=== PATIENT | male | born 1960 | race African-American/Black ===

== ENCOUNTER 2022-07-26 18:27 | Emergency (ER) | payer MEDICAID ==
[~2022-07-26] VITALS: Ht 177.8 cm; Wt 105.0 kg
[2022-07-26] MEDS: LIDOCAINE HCL/EPINEPHRINE 1%-EPI 1:100,000 10 ML VIAL IJ NR (21:15)
[2022-07-26] MEDS ORDERED: TETANUS, DIPHTHERIA, PERTUSSIS VAC/PF 0.5ML (>10YR OLD) IM ONE (21:15)
[2022-07-26] MEDS ORDERED: LIDOCAINE HCL/EPINEPHRINE 1%-EPI 1:100,000 50 ML VIAL INFIL ONE (21:15)
[2022-07-26 23:15] VITALS: BP 124/86
[2022-07-26] MEDS ORDERED: IBUPROFEN 400MG TABLET PO ONE (23:15)
[2022-07-26] MEDS ORDERED: ACETAMINOPHEN 325MG TABLET PO ONE (23:15)
[2022-07-27] MEDS: LIDOCAINE HCL/EPINEPHRINE 1%-EPI 1:100,000 10 ML VIAL IJ NR (00:06)
[2022-07-27] MEDS ORDERED: IBUP-2028 MT (00:10)
[2022-07-27] MEDS ORDERED: AMOX1TAB16 MT (00:10)
[2022-07-27] MEDS ORDERED: BO1 TP (00:13)
== END 2022-07-27 00:35 | disposition home or self-care (01) ==
LOC: ER 18:27
DX: S61.511A Laceration without foreign body of right wrist, initial encounter (principal); W54.0XXA Bitten by dog, initial encounter; Y93.89 Activity, other specified; Y92.89 Other specified places as the place of occurrence of the external cause; Y99.8 Other external cause status
CPT/HCPCS: 12004; 73100; 90471; 90715; 99283; J3490; Z7610

== ENCOUNTER 2022-07-28 13:34 | Emergency (ER) | payer BC, MEDICAID ==
[~2022-07-28] VITALS: Ht 182.9 cm; Wt 109.0 kg
[~2022-07-28 13:34] MED LIST: AMOX1TAB16 MT; BO1 TP; IBUP-2028 MT
[2022-07-28] MEDS ORDERED: ACETAMINOPHEN 325MG TABLET PO STA (17:12)
[2022-07-28] MEDS ORDERED: AMPICILLIN SOD/SULBACTAM NA 3 G in SODIUM CHLORIDE 0.9% 100 ML IV STA (17:12)
[2022-07-28] MEDS ORDERED: SODIUM CHLORIDE 0.9% 1000ML BAG (SEPSIS BOLUS) IV ONE (17:15)
[2022-07-28] MEDS ORDERED: VANCOMYCIN 1G PREMIX 200 ML IV ONE (17:15)
[2022-07-28 18:37] LABS: CHLORIDE 103 mEq/L (98-107)
[2022-07-28 18:38] LABS: BASOPHILS % 0.4 % (0.0-2.0); EOSINOPHILS % 0.3 % (0.0-5.0); HEMATOCRIT. 42.1 % (42.0-52.0); HEMOGLOBIN. 14.2 g/dL (14.0-18.0); MEAN CORPUSCULAR HEMOGLOBIN 27.6 pg (28.0-32.0); MEAN PLATELET VOLUME 8.6 fl (7.4-10.4); MONOCYTES % 8.9 % (2.0-8.0); NEUTROPHILS % 67.4 % (40.0-76.0); PLATELET 260 x1000/uL (130-400); RED BLOOD CELL COUNT 5.14 mill/uL (4.7-6.1); RED CELL DISTRIBUTION WIDTH 17.1 % (11.6-14.6)
[2022-07-28 18:40] LABS: PROTHROMBIN TIME 10.4 sec (9.6-11.0)
[2022-07-28 19:32] LABS: CLARITY URINE TURBID (CLEAR); COLOR URINE DARK YELLOW (YELLOW); KETONES URINE 1+ (NEGATIVE); LEUKOCYTE ESTERASE URINE NEGATIVE (NEGATIVE); NITRITE URINE NEGATIVE (NEGATIVE); OCCULT BLOOD URINE TRACE (NEGATIVE); PH URINE 5.5 (4.5-8.0); PROTEIN URINE 1+ (NEGATIVE); SPECIFIC GRAVITY URINE 1.031 (1.005-1.030); UROBILINOGEN URINE 0.2 E.U./dL (0.2-1.0)
[2022-07-28 19:45] LABS: *AMPHETAMINES SCREEN URINE NEGATIVE (NEGATIVE); *BARBITURATES SCREEN URINE NEGATIVE (NEGATIVE); *BENZODIAZEPINES SCREEN URINE NEGATIVE (NEGATIVE); *COCAINE SCREEN URINE NEGATIVE (NEGATIVE); CANNABINOID URINE SCREEN NEGATIVE (NEGATIVE); METHADONE URINE SCREEN NEGATIVE (NEGATIVE); OPIATES URINE SCREEN NEGATIVE (NEGATIVE); PHENCYCLIDINE URINE SCREEN NEGATIVE (NEGATIVE)
[2022-07-28] MEDS ORDERED: IOHEXOL-300 100 ML BOTTLE ONE (20:24)
[2022-07-28 22:11] VITALS: BP 145/81
== END 2022-07-28 22:10 | disposition left against medical advice (07) ==
LOC: ER 13:34 → EDBEDREQ 20:09 → EDBEDREQSVC 20:09 → EDBEDREQTM 20:09 → ER 22:10 → CANBEDREQ 07-30 07:20
DX: S61.451A Open bite of right hand, initial encounter (principal); S51.851A Open bite of right forearm, initial encounter; L03.113 Cellulitis of right upper limb; W54.0XXA Bitten by dog, initial encounter; Y93.89 Activity, other specified; Y92.89 Other specified places as the place of occurrence of the external cause
CPT/HCPCS: 36415; 73130; 80053; 80305; 81003; 83605; 84145; 85025; 85610; 87040; 87426; 96365; 96367; 99285; C9803; J0295; J3370; J7030; J7050; Q9967; Z7610